=== PATIENT | male | born 1995 | race Caucasian/White ===

== ENCOUNTER 2024-09-03 10:47 | Outpatient (REF) | payer OTHER, SELFPAY ==
--- NOTE | ~2024-09-03 | XR_ITS ---
EXAMINATION: XR THORACIC SPINE 2 VIEWS HISTORY: CHRONIC BILATERAL LOW BACK PAIN WITHOUT SCIATICA [id number] COMPARISON: There are no prior studies for comparison. FINDINGS: AP and lateral views of the thoracic spine are submitted. Osseous mineralization is normal. The vertebral bodies maintain normal height and alignment without evidence of fracture or subluxation. The intervertebral disc spaces are preserved. The visualized paraspinal soft tissues are unremarkable. XR/XR thoracic spine 2V IMPRESSION: Unremarkable examination of the thoracic spine. Electronically signed by: Isaias Adams MD 09/03/2024 03:23 PM EDT
--- NOTE | ~2024-09-03 | XR_ITS ---
EXAMINATION: XR LUMBAR SPINE 2-3 VIEWS HISTORY: intermittent LBP COMPARISON: There are no prior studies for comparison. FINDINGS: AP, lateral, and coned down views of the lumbar spine are submitted. Osseous mineralization is normal. Five nonrib-bearing lumbar vertebral bodies are identified, maintaining normal height and alignment without evidence of fracture or spondylolisthesis. The intervertebral disc spaces are preserved. The posterior elements are intact. The visualized paraspinal soft tissues are unremarkable. XR/XR lumbar spine 2-3V IMPRESSION: Unremarkable examination of the lumbar spine. Electronically signed by: Isaias Adams MD 09/03/2024 03:27 PM EDT
--- OUTSIDE RECORDS SUMMARY | 2024-09-03 11:25 | XMS_ITS | Clinical Summary ---
Author Organization [employer] Address [address] [facility] 7 [place] [address] Care Team Providers Care Necktie Maker Name Role Phone Unavailable Primary Care Provider Unavailabl e Allergies No known active allergies Medications * This document contains information received from the source organization and may not represent a complete record from that organization. BENZAC AC WASH 10 % external wash USE A FACE WASH EVERY MORNING 4 Active tretinoin (Retin-A) 0.025 % cream PLEASE SEE ATTACHED FOR DETAILED DIRECTIONS Active Encounters * This document contains information received from the source organization and may not represent a complete record from that organization. Date Type Department Care Team Description 09/03/2024 9:30 AM EDT Office Visit [facility] [address] [place] [phone] Alicia Liang DO Routine history and physical examination of adult (Primary Dx); BMI 36.0-36.9,adult; Chronic bilateral low back pain without sciatica 09/03/2024 Travel 09/02/2024 Telephone [facility] [address] [place] [phone] Darren Calderon MD Insurance 08/31/2024 Telephone [facility] [address] [place] [phone] Alicia Liang DO Chart Prep 08/27/2024 Patient Outreach [facility] [address] [place], [place] [phone] Alicia Liang DO Pre-visit Planning (SDOH negative, Tobacco screening negative. ) 08/27/2024 Patient Outreach [facility] [address] [place] [address] Alicia Liang DO Pre-visit Planning ((Unable to reach for PVP screening and or LVM)) from Last 3 Months Immunizations Immunization Administration Dates Next Due Tdap 09/03/2024 Family History Medical History Relation Name Comments Depression Father Hyperlipidemia Father Hypertension Father Anxiety disorder Mother Depression Mother Colon cancer Paternal Grandfather Depression Paternal Grandfather Diabetes Paternal Grandfather Heart disease Paternal Grandfather Heart failure Paternal Grandfather Hyperlipidemia Paternal Grandfather Hypertension Paternal Grandfather Anxiety disorder Paternal Grandmother Asthma Paternal Grandmother Lung cancer Paternal Grandmother Relation Name Status Comments Father Mother Paternal Grandfather Alive Paternal Grandmother Social History Tobacco Use Types Packs/Day Years Used Date Smoking Tobacco: Never Smokeless Tobacco: Never Tobacco Cessation:Counseling Given: Not Answered Alcohol Use Standard Drinks/Week Comments Never 0 (1 standard drink = 0.6 oz pur e alcohol) Depression Answer Date Recorded Patient Health Questionnaire-9 Score 11 09/03/2024 Patient Health Questionnaire-9 Score 11 09/03/2024 Last PHQ-9: Questionnaire Data Not on file 0 09/03/2024 Housing Stability Answer Date Recorded What is your housing situation today? I have javi lipscomb 08/27/[address] you li ve. Do you have problems with any of the following? None of the above 08/27/2024 Food Insecurity Answer Date Recorded Within the past 12 months, y ou worried that your food would run out before you got money to buy more: Never True 08/27/2024 Within the past 12 months,th e food you bought just didn't last and you didn't have enough money to get more: Never True 12/2024 Transportation Answer Date Recorded In the past 12 months, has l ack of transportation kept you from medical appts, meetings, work or from getting things needed for daily living? No 08/27/2024 Utilities Answer Date Recorded In the past 12 months, has t he electric, gas, oil or water company threatened to shut off services in your home? No 08/27/2024 Depression Answer Date Recorded Patient Health Questionnaire-2 Score 3 09/03/2024 Internet Access Answer Date Recorded Internet Access Q1 Yes 08/27/2024 Internet Access Q2 Not on file 08/27/2024 Comments Unknown Sex and Gender Information Value Date Recorded Sex Assigned at Unknown 09/02/2024 9:23 AM EDT Legal Sex Male 12:03 PM EDT Gender Identity Male 09/03/2024 9:33 AM EDT Sexual Orientation Don't know 09/02/2024 9: 23 AM EDT Last Filed Vital Signs Vital Sign Reading Time Taken Comments Blood Pressure 118/70 09/03/2024 9:29 AM EDT Pulse 85 09/03/2024 9:29 AM EDT Temperature 36.8 ??C (98.3 ??F) 09/03/2024 9:29 AM ED T Respiratory Rate 20 09/03/2024 9:29 AM EDT Oxygen Saturation 97% 09/03/2024 9:29 AM EDT Inhaled Oxygen Concentration - - Weight 109 kg (241 lb 2 oz) 09/03/2024 9:29 AM E DT Height 172.7 cm (5' 8 ) 09/03/2024 9:29 AM EDT Body Mass Index 36.66 09/03/2024 9:29 AM EDT Plan of Treatment Health Maintenance Due Date Last Done Comments HIV Screening 1997 Family Planning (PISQ) 2012 Hepatitis C Screening 06/30/2015 Hepatitis B Vaccines (1 of 3 - 19+ 3-dose series) 2016 COVID-19 Vaccine ( - 2023-2 5 season) 2023 Influenza Vaccine (#1) 2023 SDOH Screening 08/27/2025 08/27/2024 Alcohol/Substance Use Screening 09/03/2025 09/03/2024 Depression Screening 09/03/2025 09/03/2024, 09/03/2024 Tobacco Screening 09/03/2025 09/03/2024 DTaP/Tdap/Td Vaccines (2 - T d or Tdap) 09/03/2034 09/03/2024 Zoster Vaccines (1 of 2) 06/30/2047 RSV Patients and Patients Aged 60 years or older (1 - 1-dose 75+ series) 2072 HIB Vaccines Aged Out No longer eligi ble based on patient's age to complete this topic HPV Vaccines Aged Out No longer eligi ble based on patient's age to complete this topic Hepatitis A Vaccines Aged Out No long er eligible based on patient's age to complete this topic IPV Vaccines Aged Out No longer eligi ble based on patient's age to complete this topic Meningococcal B Vaccine Aged Out No l onger eligible based on patient's age to complete this topic Meningococcal Vaccine Aged Out No stanley shimon eligible based on patient's age to complete this topic Pneumococcal Vaccine: Pediatrics (0 to 5 Years) and At-Risk Patients (6 to 49) Years) Aged Out No longer eligible b ased on patient's age to complete this topic RSV under 20 months Aged Out No longe r eligible based on patient's age to complete this topic Rotavirus Vaccines Aged Out No longer eligible based on patient's age to complete this topic Insurance [facility]
--- OUTSIDE RECORDS SUMMARY | 2024-09-03 11:25 | XMS_ITS | Encounter Summary ---
Author Organization [employer] Address [address] [facility] 7t [place] [address] Care Team Providers Care Refrigeration Installer Name Role Phone Unavailable Primary Care Provider Unavailabl e Reason for Visit * Reason Onset Date Comments Insurance 09/02/2024 Encounter Details Date Type Department Care Team ([facility] st Contact Info) Description 09/02/2024 Telephone [facility] [address] [place], [place] [phone] Darren Calderon MD [address] [place] [address] Insurance Social History Tobacco Use Types Packs/Day Years Used Date Smoking Tobacco: Never Assessed Depression Answer Date Recorded Patient Health Questionnaire-9 [...] Don't know 09/02/2024 9: 23 AM EDT documented as of this encounter Miscellaneous Notes * Telephone Encounter - Socorro Kimball - 09/02/2024 11:26 AM EDT Called pt but there voicemail isn't set up so I couldn't leave a message but if pt calls back it was to inform them they have a appt tomorrow but there [facility] isn't active they would have to call their insurance or come to insurance enrollment a few minutes earlier than there appt to speak to them. If they have any questions they can ask for red team fd. documented in this encounter Plan of Treatment Not on file documented as of this encounter Visit Diagnoses Not on filedocumented in this encounter
--- OUTSIDE RECORDS SUMMARY | 2024-09-03 11:25 | XMS_ITS | Encounter Summary ---
Author Organization [employer] Address [address] [facility] [address] 7[address] [place] [address] Care Team Providers Care Chairman Ceo Name Role Phone Unavailable Primary Care Provider Unavailabl e Encounter Details Date Type Department Care Team (Late st Contact Info) Description 09/03/2024 9:30 AM EDT Office Visit [facility] [address] [place], [place] [phone] Alicia Liang DO [address] [place], [place] [phone] Routine history and physical examination of adult (Primary Dx); BMI 36.0-36.9,adult; Chronic bilateral low back pain without sciatica Social History Tobacco Use Types Packs/Day Years [...] AM EDT documented as of this encounter Last Filed Vital Signs Vital Sign Reading [...] Mass Index 36.66 09/03/2024 9:29 AM EDT documented in this encounter Functional Status * Over the past 2 weeks, how often have you been bothered by any of the following problems? Question Answer Date of Assessment Author Patient Health Questionnaire -2 Score 3 09/03/2024 10:35 AM EDT Ashly Ferrera MA * Little interest or pleasure in doing things Answer Date of Assessment Author Several days 09/03/2024 10:35 AM EDT Ashly Ferrera MA * Feeling down, depressed, or hopeless Answer Date of Assessment Author More than half the days 09/03/2024 10:35 AM EDT Ashly Ferrera MA * Trouble falling or staying asleep, or sleeping too much Answer Date of Assessment Author Several days 09/03/2024 10:35 AM Ashly Butt MA * Feeling tired or having little energy Answer Date of Assessment Author More than half the days 09/03/2024 10:35 AM Ashly Butt MA * Poor appetite or overeating Answer Date of Assessment Author Several days 09/03/2024 10:35 AM Ashly Butt MA * Feeling bad about yourself - or that you are a failure or have let yourself or your family down Answer Date of Assessment Author Several days 09/03/2024 10:35 AM Ashly Butt MA * Trouble concentrating on things, such as reading the newspaper or watching television Answer Date of Assessment Author Several days 09/03/2024 10:35 AM Ashly Butt MA * Moving or speaking so slowly that other people could have noticed? Or the opposite - being so fidgety or restless that you have been moving around a lot more than usual. Answer Date of Assessment Author More than half the days 09/03/2024 10:35 AM Ashly Butt MA * Thoughts that you would be better off or hurting yourself in some way Answer Date of Assessment Author Not at all 09/03/2024 10:35 AM Ashly Butt MA * Patient Health Questionnaire-9 Score Answer Date of Assessment Author 11 09/03/2024 10:35 AM Ashly Butt MA * How difficult have these problems made it for you to do your work, take care of things at home, or get along with other people? Answer Date of Assessment Author Somewhat difficult 09/03/2024 10:35 AM Ashly Almodovar MA * Over the last 2 weeks, how often have you been bothered by any of the following problems? Question Answer Date of Assessment Author Feeling nervous, anxious, or on edge 3 09/03/2024 10:36 AM Ashly Butt MA Not being able to stop or co ntrol worrying 2 09/03/2024 10:36 AM Ashly Butt MA Worrying too much about diff erent things 2 09/03/2024 10:36 AM EDT Ashly Ferrera MA Trouble relaxing 1 09/03/2024 10:36 AM EDT Ashly Ferrera MA Being so restless that it is hard to sit still 3 09/03/2024 10:36 AM EDT Ashly Ferrera MA Becoming easily annoyed or irritable 2 09/03/2024 10:36 AM EDT Ashly Ferrera MA Feeling afraid as if somethi ng awful might happen 2 09/03/2024 10:36 AM EDT Ashly Ferrera MA TAURUS-7 Total Score 15 09/03/2024 10:36 AM EDT Ashly Ferrera MA documented as of this encounter Plan of Treatment Scheduled Orders Name Type Priority Associated Diagnoses Orde r Schedule T4, Free Lab Routine Routine history and physical examination of adult BMI 36.0-36.9,adult Expected: 09/03/2024 (Approximate), Expires: 09/03/2025 Lipid Panel, Standard Lab Routine Routine history and physical examination of adult BMI 36.0-36.9,adult Expected: 09/03/2024 (Approximate), Expires: 09/03/2025 TSH Lab Routine Routine history and physical examination of adult BMI 36.0-36.9,adult Expected: 09/03/2024 (Approximate), Expires: 09/03/2025 Vitamin D, 25-Hydroxy, Total, Immunoassay Lab Routine Routine history and physical examination of adult BMI 36.0-36.9,adult Expected: 09/03/2024 (Approximate), Expires: 09/03/2025 Hepatic Function Panel Lab Routine Routine history and physical examination of adult BMI 36.0-36.9,adult Expected: 09/03/2024 (Approximate), Expires: 09/03/2025 Hemoglobin A1c Lab Routine Routine history and physical examination of adult BMI 36.0-36.9,adult Expected: 09/03/2024 (Approximate), Expires: 09/03/2025 CBC Lab Routine Routine history and physical examination of adult BMI 36.0-36.9,adult Expected: 09/03/2024, Expires: 09/03/2025 Basic Metabolic Panel Lab Routine Routine history and physical examination of adult BMI 36.0-36.9,adult Expected: 09/03/2024 (Approximate), Expires: 09/03/2025 Varicella zoster antibody, IgG Lab Routine Routine history and physical examination of adult BMI 36.0-36.9,adult Expected: 09/03/2024 (Approximate), Expires: 09/03/2025 Measles, Mumps, and Rubella (MMR) Antibodies??(IgG) Panel, Immune Status Lab Routine Routine history and physical examination of adult BMI 36.0-36.9,adult Expected: 09/03/2024 (Approximate), Expires: 09/03/2025 Hepatitis B surface antigen, EIA Lab Routine Routine history and physical examination of adult BMI 36.0-36.9,adult Expected: 09/03/2024 (Approximate), Expires: 09/03/2025 Chlamydia/N. Gonorrhoeae RNA, TMA, Urogenitial Microbiology Routine Routine history and physical examination of adult BMI 36.0-36.9,adult Ordered: 09/03/2024 HIV-1/2 Antigen and Antibodies, Fourth Generation, with Reflexes Lab Routine Routine history and physical examination of adult BMI 36.0-36.9,adult Expected: 09/03/2024 (Approximate), Expires: 09/03/2025 Hepatitis C Antibody with Reflex to HCV, RNA, Quantitative, Real-Time PCR Lab Routine Routine history and physical examination of adult BMI 36.0-36.9,adult Expected: 09/03/2024, Expires: 09/03/2025 RPR (Monitor) with Reflex to??Titer Lab Routine Routine history and physical examination of adult BMI 36.0-36.9,adult Expected: 09/03/2024, Expires: 09/03/2025 Hepatitis B Surface Antibody, Qualitative Lab Routine Routine history and physical examination of adult BMI 36.0-36.9,adult Expected: 09/03/2024 (Approximate), Expires: 09/03/2025 Hepatitis A Antibody, Total Lab Routine Routine history and physical examination of adult BMI 36.0-36.9,adult Expected: 09/03/2024 (Approximate), Expires: 09/03/2025 Hepatitis B Core Antibody, Total Lab Routine Routine history and physical examination of adult BMI 36.0-36.9,adult Expected: 09/03/2024 (Approximate), Expires: 09/03/2025 T-SPOT??.TB Lab Routine Routine history and physical examination of adult BMI 36.0-36.9,adult Expected: 09/03/2024 (Approximate), Expires: 09/03/2025 XR Thoracic Spine 2 Views Imaging Routine Chronic bilateral low back pain without sciatica Expected: 09/03/2024, Expires: 09/03/2025 XR Lumbar Spine 2-3 Views Imaging Routine Chronic bilateral low back pain without sciatica Expected: 09/03/2024, Expires: 09/03/2025 documented as of this encounter Visit Diagnoses Diagnosis Routine history and physical examination of adult- Primary BMI 36.0-36.9,adult Chronic bilateral low back pain without sciatica documented in this encounter Additional Health Concerns Assessment Noted Time PHQ-9 Depression Total Score: 11 025 10:35 AM EDT documented as of this encounter
--- OUTSIDE RECORDS SUMMARY | 2024-09-03 11:25 | XMS_ITS | Clinical Summary ---
Author Organization [facility] Address [address] [place] [id number] Care Team Providers Care Orange Peel Operator Name Role Phone Pcp, No Primary Care Provider Unavailabl e Social History Tobacco Use Types Packs/Day Years Used Date Smoking Tobacco: Never Assessed Sex and Gender Information Value Date Recorded Sex Assigned at Not on file Legal Sex Male 3:00 PM EST Gender Identity Not on file Sexual Orientation Not on file Plan of Treatment Upcoming Encounters Date Type Department Care Team (Late st Contact Info) Description 10/26/2024 8:30 AM EDT Office Visit [address] [place] [address] Tamela Jones PA-C [address] [place] [address] Health Maintenance Due Date Last Done Comments Hepatitis C Virus Screening 1997 HIV Screening 2010 DTaP/Tdap/Td Vaccines (1 - Tdap) 2016 Hepatitis B Vaccines (1 of 3 - 19+ 3-dose series) 2016 COVID-19 Vaccine ( - 2023-2 5 season) 2023 Influenza Vaccine 11/19/2024 HPV Vaccines Aged Out No longer eligi ble based on patient's age to complete this topic Pneumococcal Vaccine: Pediat henry (0-5 Years) and At-Risk Patients (6 to 49 Years) Aged Out No longer eligible b ased on patient's age to complete this topic Insurance [facility] Care Teams Orange Peel Operator Relationship Specialty Start Date End Date Pcp, No PCP - General General Medicine 04/07/24
--- OUTSIDE RECORDS SUMMARY | 2024-09-03 11:25 | XMS_ITS | Encounter Summary ---
Author Organization [employer] Address [address] [facility] 7t [place] [address] Care Team Providers Care Take Up Operator Name Role Phone Unavailable Primary Care Provider Unavailabl e Reason for Visit * Reason Onset Date Comments Chart Prep 08/31/2024 Encounter Details Date Type Department Care Team ([facility] st Contact Info) Description 08/31/2024 Telephone [facility] [address] [place], [place] [phone] Alicia Liang DO [address] [place], [place] [phone] Chart Prep Social History Tobacco Use Types Packs/Day Years Used Date Smoking Tobacco: Never Assessed Housing Stability Answer Date Recorded What is [...] off services in your home? No 08/27/2024 Internet Access Answer Date Recorded Internet Access [...] encounter Miscellaneous Notes * Telephone Encounter - Ashly Ferrera MA - 08/31/2024 8:29 AM EDT Chart Prep Labs: not applicable Images: not applicable Referrals: not applicable Vaccines due: Covid, Flu, Tdap, and Hep B Screenings: HIV Screening, Hepatitis C Screening, Tobacco Screening Overdue care gaps: SBIRT, PHQ-9, TAURUS-7, Disability screen, and Tobacco documented in this encounter Plan of Treatment Not on file documented as of this encounter Visit Diagnoses Not on filedocumented in this encounter
--- OUTSIDE RECORDS SUMMARY | 2024-09-03 11:25 | XMS_ITS | Encounter Summary ---
Author Organization [employer] Address [address] [facility] 7 [place] [address] Care Team Providers Care Billing And Insurance Coordinator Name Role Phone Unavailable Primary Care Provider Unavailabl e Encounter Details Date Type Department Care Team (Latest Contact Info) Description 09/03/2024 Travel Social History Tobacco Use Types Packs/Day Years Used Date Smoking Tobacco: Never Smokeless Tobacco: Never Alcohol Use Standard Drinks/Week Comments Never 0 [...] AM EDT documented as of this encounter Functional Status * Over the [...] AM EDT Ashly Ferrera MA * Feeling tired or having little energy Answer Date of Assessment Author More than half the days 09/03/2024 10:35 AM EDT Ashly Ferrera MA * Poor appetite or overeating Answer Date of Assessment Author Several days 09/03/2024 10:35 AM EDT Ashly Ferrera MA * Feeling bad about yourself - or that you are a failure or have let yourself or your family down Answer Date of Assessment Author Several days 09/03/2024 10:35 AM EDT Ashly Ferrera MA * Trouble concentrating on things, such as reading the newspaper or watching television Answer Date of Assessment Author Several days 09/03/2024 10:35 AM EDT Ashly Ferrera MA * Moving or speaking so slowly that other people could have noticed? Or the opposite - being so fidgety or restless that you have been moving around a lot more than usual. Answer Date of Assessment Author More than half the days 09/03/2024 10:35 AM EDT Ashly Ferrera MA * Thoughts that you would be better off or hurting yourself in some way Answer Date of Assessment Author Not at all 09/03/2024 10:35 AM TIMOTEOT Ashly Ferrera MA * Patient Health Questionnaire-9 Score Answer Date of Assessment Author 11 09/03/2024 10:35 AM TIMOTEOT Ashly Ferrera MA * How difficult have these problems made it for you to do your work, take care of things at home, or get along with other people? Answer Date of Assessment Author Somewhat difficult 09/03/2024 10:35 AM EDT Ashly Carrion MA * Over the last 2 weeks, how often have you been bothered by any of the following problems? Question Answer Date of Assessment Author Feeling nervous, anxious, or on edge 3 09/03/2024 10:36 AM EDT Ashly Ferrera MA Not being able to stop or co ntrol worrying 2 09/03/2024 10:36 AM TIMOTEOT Ashly Ferrera MA Worrying too much about diff erent things 2 09/03/2024 10:36 AM EDT Ashly Ferrera MA Trouble relaxing 1 09/03/2024 10:36 AM EDT Ashly Ferrera MA Being so restless that it is hard to sit still 3 09/03/2024 10:36 AM EDT Ashly Ferrera MA Becoming easily annoyed or irritable 2 09/03/2024 10:36 AM TIMOTEOT Ashly Ferrera MA Feeling afraid as if somethi ng awful might happen 2 09/03/2024 10:36 AM EDT Ashly Ferrera MA TAURUS-7 Total Score 15 09/03/2024 10:36 AM TIMOTEOT Ashly Ferrera MA documented as of this encounter Plan of Treatment Not on file documented as of this encounter Visit Diagnoses Not on filedocumented in this encounter Additional Health Concerns Assessment Noted Time PHQ-9 Depression Total Score: 11 09/03/ 025 10:35 AM EDT documented as of this encounter
[2024-09-03 13:14] LABS: Hematocrit 46.3 % (42.0-52.0); Hemoglobin 15.5 g/dl (14.0-18.0); Mean Corpuscular HGB Conc 33.5 g/dl (31.0-36.0); Mean Corpuscular Hemoglobin 28.9 pg (27.0-33.0); Mean Corpuscular Volume 86.2 fL (80.0-98.0); Mean Platelet Volume 10.5 fL (9.4-12.4); Platelet Count 313 X10*3/uL (160-400); Red Blood Count 5.37 X10*6/uL (4.60-5.80); Red Cell Distribution Width 13.3 % (11.0-16.0); White Blood Count 6.9 X10*3/uL (4.8-10.8)
[2024-09-03 13:25] LABS: Estimated Average Glucose 100 mg/dL; Hemoglobin A1C 133.0918 umol/L; Hemoglobin A1c % 5.1 % (<6.0); Total Hemoglobin (HGBA1C) 4075.3347 umol/L
[2024-09-03 14:13] LABS: Alanine Aminotransferase 34 U/L (0-40); Albumin Level 4.6 g/dL (3.5-5.0); Alkaline Phosphatase 63 U/L (39-117); Anion Gap 11 (12-20); Aspartate Amino Transferase 33 U/L (5-37); Bilirubin Direct 0.2 mg/dL (0.0-0.5); Bilirubin Total 0.5 mg/dL (0.0-1.0); Blood Urea Nitrogen 19 mg/dL (9-16); Calcium 9.5 mg/dL (8.4-10.2); Carbon Dioxide 26 mmol/L (22-29); Chloride 106 mmol/L (96-108); Cholesterol 190 mg/dL (<200); Estimated Glomerular Filt Rate > 60; Free T4 (Free Thyroxine) 0.87 ng/dL (0.71-1.85); Glucose Random 90 mg/dL (60-115); HDL Cholesterol 48 mg/dL (>40); LDL Cholesterol Calculated 124 mg/dL (<100); Sodium 139 mmol/L (135-145); Thyroid Stimulating Hormone 1.35 uIU/mL (0.32-4.0); Total Protein 7.5 g/dL (6.5-8.0); Triglycerides 93 mg/dL (<150); Vitamin D 25-OH Total 16.2 ng/mL (>30)
[2024-09-03 14:52] LABS: CT PCR NOT DETECTED (Not Detect.); NG PCR NOT DETECTED (Not Detect.)
[2024-09-04 06:33] LABS: Varicella IgG Antibody <1.00 S/CO
[2024-09-04 06:37] LABS: Rubella IgG Antibody 1.25 Index
[2024-09-04 07:33] LABS: Hepatitis A Antibody IgG Nonreactive (Nonreactive); ~Hepatitis A Antibody IgG 0.24 S/CO (0.00-0.99)
[2024-09-04 07:55] LABS: HBS Num1 0.85 mIU/mL (0-7.99); HBc Num1 0.52 S/CO (0.00-0.79); HBsAGNum1 0.58 S/CO (0.00-0.99); HIV AB/AG Nonreactive (Nonreactive); HIV Num 1 0.07 S/CO (0.00-0.99); Hepatitis B Core Antibody Nonreactive (Nonreactive); Hepatitis B Surface Antigen Negative (Negative); ~Hepatitis B Surface Antibody NONREACTIVE (Nonreactive); ~Hepatitis C Antibody Nonreactive (Nonreactive)
[2024-09-05 19:44] LABS: RPR Rapid Plasma Reagin NON-REACTIVE (NON-REACTIVE)
[2024-09-06 17:03] LABS: TS Negative Control Passed; TS Panel A 0; TS Panel B 0; TS Positive Control Passed; TSpotTB Negative (Negative)
== END 2024-09-03 10:48 | disposition home or self-care (01) ==
LOC: HO.HHCX 10:47
PROVIDERS: PCP Family Medicine; Visit Provider Family Medicine
DX: M54.50 Low back pain, unspecified (principal); G89.29 Other chronic pain; Z13.1 Encounter for screening for diabetes mellitus; Z11.4 Encounter for screening for human immunodeficiency virus [HIV]; Z11.1 Encounter for screening for respiratory tuberculosis; Z13.6 Encounter for screening for cardiovascular disorders; Z00.00 Encounter for general adult medical examination without abnormal findings
CPT/HCPCS: 72070; 72100; 80048; 80061; 80076; 82306; 83036; 84439; 84443; 85027; 86481; 86592; 86704; 86706; 86708; 86735; 86762; 86765; 86787; 86803; 87340; 87389; 87491; 87591

== ENCOUNTER → 2024-09-03 10:57 | Outpatient (BNV) | payer OTHER, SELFPAY | PROVIDERS: PCP Family Medicine; Visit Provider Radiology Diagnostic Radiology | DX: M54.50 Low back pain, unspecified (principal); M54.59 Other low back pain | CPT/HCPCS: 72070; 72100 ==

== ENCOUNTER 2024-09-03 11:21 | Outpatient (REF) | payer OTHER, SELFPAY | END 2024-09-03 11:22 | disposition home or self-care (01) | LOC: HO.HHCL 11:21 | PROVIDERS: Visit Provider Family Medicine | DX: Z13.89 Encounter for screening for other disorder (principal) ==